=== PATIENT | male | born 1975 | race Caucasian/White ===

== ENCOUNTER 2020-09-17 07:07 | Emergency (ER) | payer MEDICAID ==
[2020-09-17 07:49] VITALS: BP 142/79; PULSE 99
[2020-09-17] MEDS ORDERED: Ciprofloxacin 0.3% Ophth Soln 2.5 ML Bottle ONE (08:00)
--- NOTE | 2020-09-17 09:25 | ER ---
REASON FOR EMERGENCY ROOM VISIT: Possible eye infection. 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 This morning he noticed some crusting about the lids and was concerned about an infection. He states that he has had no history of trauma or definite foreign body in his eye. However, he does get a foreign body sensation when he opens and closes his eyelids involving his left eye. He has not had any fever or upper respiratory tract symptoms, and otherwise, has felt well. PAST MEDICAL HISTORY: Unremarkable. MEDICATIONS: None. ALLERGIES: NONE. PHYSICAL EXAMINATION: GENERAL: He is afebrile. EYES: Examination of both eyes reveals that he has some conjunctival injection, more so on the left, but a slight amount on the right as well. There appears to be some conjunctival edema which is mild as well. The left eye was anesthetized topically with tetracaine and after a few minutes had elapsed. I applied a fluorescein strip to the left eye, and after application of this for about 30 seconds, I removed it, and using magnification and a black light, I inspected the cornea. There was no definite evidence of a corneal abrasion. I did jordi both the upper and lower lid and inspected the conjunctival recesses for any evidence of the existing foreign body and there was none. IMPRESSION: Conjunctivitis. PLAN: He was given ciprofloxacin ophthalmic drops. Instructed to apply 2 drops to each affected eye every 2 hours while awake for the first 2 days and every 4 hours thereafter. He should continue with this for at least a week or until he runs out of the antibiotic solution, whichever comes first. If he is still having any significant symptoms after 2 days, he should return for re-evaluation of this. Certainly, if his symptoms worsen in any way, in the interim, he should likewise be seen again. He understands and agrees. All questions were answered. AMOR /[id number]
== END 2020-09-17 08:25 | disposition home or self-care (01) ==
LOC: LB.ED 07:07
DX: H10.9 Unspecified conjunctivitis (principal)
CPT/HCPCS: 99282; A9270-GY